=== PATIENT | male | born 1975 | race Caucasian/White ===

== ENCOUNTER → 2022-07-19 13:51 | Outpatient (CLI) | payer BC, SELFPAY ==
--- NOTE | ~2022-07-19 | XR_ITS ---
EXAM: XR shoulder RT min 2V DATE: 07/19/2022 14:15 HISTORY: fall 2 days ago medial and lateral pain and swelling . COMPARISON: None available. FINDINGS: Normal mineralization. No fracture or dislocation. No lytic or blastic lesion. Moderate AC joint hypertrophy. Severe glenohumeral narrowing and osteophytosis. No erosion or periosteal change. Soft tissues within normal limits. Calcified lung granuloma. IMPRESSION: No acute osseous finding in the right shoulder. Severe glenohumeral osteoarthritis. Reviewed, dictated and finalized at location K.
--- NOTE | ~2022-07-19 | XR_ITS ---
EXAMINATION: XR cervical spine 4-5V DATE: 07/19/2022 14:15 INDICATION: Neck pain and swelling. TECHNIQUE: 4 views of cervical spine were obtained. COMPARISON: None. FINDINGS: There is 3 degrees dextrocurvature of cervical spine. There is kyphosis of cervical spine. Vertebral body heights are normal. There is mildly decreased disc height at C4-C5, moderately decreas ed disc height at C5-C6, and severely decreased disc height at C6-C7. There is multilevel mild facet joint osteoarthritis. There is multilevel uncovertebral joint osteoarthritis, severe bilaterally at C 5-C6 and C6-C7. There is mild central canal stenosis at C4-C5, C5-C6, and C6-C7. No prevertebral soft tissue swelling. IMPRESSION: 1. Severe cervical spondylosis. Reviewed, dictated and finalized at location A.
== END ==
PROVIDERS: PCP Internal Medicine; Visit Provider Nurse Practitioner
DX: M47.812 Spondylosis without myelopathy or radiculopathy, cervical region (principal); M54.2 Cervicalgia; M19.011 Primary osteoarthritis, right shoulder; W19.XXXA Unspecified fall, initial encounter
CPT/HCPCS: 72050; 73030